=== PATIENT | female | born 2000 | race Caucasian/White ===

== ENCOUNTER 2022-03-01 15:59 | Inpatient (IN) ==
[2022-03-01] MEDS ORDERED: EPHEDrine 50 MG/ML VIAL IVP PRN (16:33)
[2022-03-01] MEDS ORDERED: Lidocaine 1% 20 ML MDV INFILT PRN (16:35)
[2022-03-01] MEDS ORDERED: Ondansetron 4 MG/2 ML VIAL IVP PRN (16:35)
[2022-03-01] MEDS ORDERED: Metoclopramide 10 MG/2 ML VIAL IVP PRN (16:35)
[2022-03-01] MEDS ORDERED: *HR* Nalbuphine 10 MG/ML AMPUL IV PRN (16:35)
[2022-03-01] MEDS ORDERED: Azithromycin 500 MG in 0.9 % Sodium Chloride 250 ML IVPB PRN (16:35)
[2022-03-01] MEDS ORDERED: Famotidine 20 MG/2 ML VIAL IVP PRN (16:35)
[2022-03-01] MEDS ORDERED: Epidural Premix (fent/bupiv) 110 ML EP SCH (16:45)
[2022-03-01 17:03] LABS: Basophils % 0.3 %; Mean Corpuscular Hemoglobin 29.9 pg (28.0-33.3)
[2022-03-01 17:05] LABS: Eosinophils # 0.1 K/mcL (0.0-0.6); Eosinophils % 0.4 %; Hematocrit 40.6 % (35.3-44.9); Hemoglobin 13.3 g/dL (11.5-15.4); Immature Granulocytes % 0.6 % (0-4); Lymphocytes # 1.8 K/mcL (0.6-4.6); Lymphocytes % 11.9 %; Mean Corpuscular HGB Conc 32.8 g/dL (31.6-35.5); Mean Corpuscular Volume 91.2 fL (83.0-100.0); Monocytes # 1.3 K/mcL (0.0-1.3); Monocytes % 8.5 %; Neutrophils # 11.6 K/mcL (1.6-8.9); Platelet Count 171 K/mcL (140-400); Red Blood Count 4.45 M/mcL (3.82-4.97); Red Cell Distribution Width 13.4 % (11.5-14.5); Segmented Neutrophils % 78.3 %; White Blood Count 14.8 K/mcL (4.3-11.1)
[2022-03-01 17:07] LABS: Protein/Creatinine Ratio,Urine 0.3 mg/mg (0.00-0.20)
[2022-03-01 17:20] LABS: Alanine Aminotransferase 12 Units/L (7-52); Aspartate Amino Transferase 18 Units/L (13-39); BUN/Creatinine Ratio 11 (6-26); Blood Urea Nitrogen 7 mg/dL (6-20); Lactate Dehydrogenase 180 Units/L (140-271); Uric Acid 4.1 mg/dL (2.3-7.6)
[2022-03-01] MEDS: Ringers Solution, Lactated 1,000 ML IVC SCH ×2 (18:52→23:27)
[2022-03-01] MEDS ORDERED: *HR* Phenylephrine 10 MG/ML VIAL ONE (19:07)
[2022-03-01] MEDS ORDERED: miSOPROStoL 25 MCG TABLET PO PRN ×2 (20:09→21:13)
[2022-03-01] MEDS ORDERED: Oxytocin 30 UNIT/503 ML BAG IVC SCH (21:00)
[2022-03-02 10:12] LABS: Amphetamine Screen,Urine Negative ng/mL (Cutoff=1000); Barbiturate Screen,Urine Negative ng/mL (Cutoff=200); Benzodiazepines Screen,Urine Negative ng/mL (Cutoff=200); Cannabinoid Screen,Urine Negative ng/mL (Cutoff = 50); Cocaine Screen,Urine Negative ng/mL (Cutoff= 300); Opiate Screen,Urine Negative ng/mL (Cutoff=300); Phencyclidine Screen,Urine Negative ng/mL (Cutoff=25)
[2022-03-02] MEDS ORDERED: Oxytocin 30 UNIT/503 ML BAG IVC SCH (11:54)
[2022-03-02] MEDS ORDERED: *HR* OxyCODONE Immed Rel 5 MG TABLET PO PRN (11:54)
[2022-03-02] MEDS ORDERED: Lanolin 7 G OINT...G. TP PRN (11:54)
[2022-03-02] MEDS ORDERED: Benzocaine/Menthol 56 GM AEROSOL SPRAY TP PRN (11:54)
[2022-03-02] MEDS ORDERED: Ondansetron ODT 4 MG TAB.RAPDIS SL PRN (11:54)
[2022-03-02] MEDS: Ibuprofen 600 MG TABLET PO SCH ×2 (13:49→20:56)
[2022-03-02 19:22] VITALS: O2SAT 97
[2022-03-03] MEDS: Ibuprofen 600 MG TABLET PO SCH ×2 (02:59→09:50)
[2022-03-03 04:55] LABS: Basophils % 0.2 %; Immature Granulocytes % 0.6 % (0-4); Monocytes % 9.1 %; Segmented Neutrophils % 77.9 %
[2022-03-03 04:57] LABS: Eosinophils # 0.1 K/mcL (0.0-0.6); Eosinophils % 0.5 %; Hematocrit 25.3 % (35.3-44.9); Hemoglobin 8.4 g/dL (11.5-15.4); Immature Platelets 24.8 % (1.1-6.1); Lymphocytes # 1.6 K/mcL (0.6-4.6); Lymphocytes % 11.7 %; Mean Corpuscular HGB Conc 33.2 g/dL (31.6-35.5); Mean Corpuscular Hemoglobin 30.3 pg (28.0-33.3); Mean Corpuscular Volume 91.3 fL (83.0-100.0); Monocytes # 1.3 K/mcL (0.0-1.3); Neutrophils # 10.8 K/mcL (1.6-8.9); Platelet Count 119 K/mcL (140-400); Red Blood Count 2.77 M/mcL (3.82-4.97); Red Cell Distribution Width 13.8 % (11.5-14.5); White Blood Count 13.8 K/mcL (4.3-11.1)
[2022-03-03 06:56] VITALS: BP 114/70; PULSE 92; TEMP 98.1
[2022-03-03] MEDS ORDERED: Prenatal Vit/FA 1 EACH TABLET PO SCH (09:00)
== END 2022-03-03 12:31 | disposition home or self-care (01) | DRG 807 ==
LOC: 1NENULAB 15:59 → 1NENUOBS 03-02 12:22
PROVIDERS: ADMIT Advanced Practice Midwife; ATTEND Advanced Practice Midwife